=== PATIENT | female | born 1990 | race Two or more races ===

== ENCOUNTER 2017-06-25 15:13 | Inpatient (IN) | payer OTHER ==
[2017-06-25 16:42] VITALS: BMI 31.1
--- NOTE | 2017-06-25 19:59 | HP ---
CIWA Score - CIWA Score Nausea/Vomitin Muscle Tremors: 4-Moderate,w/Arms Extend Anxiety: 4-Mod. Anxious/Guarded Agitation: 4-Moderately Restless Paroxysmal Sweats: 1-Minimal Palms Moist Orientation: 0-Oriented Tacttile Disturbances: 0-None Auditory Disturbances: 0-None Visual Disturbances: 0-None Headache: 0-None Present CIWA-Ar Total Score: 15 Admission ROS BHS - HPI Chief Complaint: WITHDRAWAL SX Allergies/Adverse Reactions: Allergies Allergy/AdvReac Type Severity Reaction Status Date / Time onion Allergy Unknown Verified 06/25/17 16:55 Penicillins Allergy Unknown Verified 06/25/17 16:55 History of Present Illness: 27 YEARS OLD FEMALE WITH LONG HISTORY OF ALCOHOL XANAX KLONOPIN NICOTINE DEPENDENCE HAS BENZO WITHDRAWAL RELATED SEIZURE LAST EPISODE 12/2016 ASTHMA, AND BIPOLAR II IS ADMITTED TO DETOX Exam Limitations: No Limitations - Ebola screening Have you traveled outside of the country in the last 21 days: No Have you had contact with anyone from an Ebola affected area: No Have you been sick,other than usual withdrawal symptoms: No Do you have a fever: No - Review of Systems Constitutional: Changes in sleep, Weight Stable EENT: reports: No Symptoms Reported Respiratory: reports: No Symptoms reported Cardiac: reports: Other (HEART ATTACH AGE 14 DUE TO OVER DOSE) GI: reports: Nausea, Poor Fluid Intake, Indigestion, Abdominal cramping : reports: No Symptoms Reported Musculoskeletal: reports: Back Pain Integumentary: reports: Lesions (LEFT BREAST SKIN ABRASION SUPERFICAL) Neuro: reports: Seizure (12/2016), Tremors Endocrine: reports: No Symptoms Reported Hematology: reports: No Symptoms Reported Psychiatric: reports: Judgement Intact, Orientated x3, Anxious, Depressed Other Systems: Reviewed and Negative Patient History - Patient Medical History Hx Anemia: No Hx Asthma: Yes Hx Chronic Obstructive Pulmonary Disease (COPD): No Hx Cancer: No Hx Cardiac Disorders: Yes (CT AGE 14) Hx Congestive Heart Failure: No Hx Hypertension: No Hx Hypercholesterolemia: No Hx Pacemaker: No HX Cerebrovascular Accident: No Hx Seizures: Yes (last was 2013) Hx Dementia: No Hx Diabetes: No Hx Gastrointestinal Disorders: No Hx Liver Disease: No Hx Genitourinary Disorders: No Hx Sexually Transmitted Disorders: No Hx Renal Disease (ESRD): No Hx Thyroid Disease: No Hx Human Immunodeficiency Virus (HIV): No Hx Hepatitis C: No Hx Depression: No Hx Suicide Attempt: No Hx Bipolar Disorder: Yes Hx Schizophrenia: No - Patient Surgical History Past Surgical History: Yes Hx Neurologic Surgery: No Hx Cataract Extraction: No Hx Cardiac Surgery: No Hx Lung Surgery: No Hx Breast Surgery: No Hx Breast Biopsy: No Hx Abdominal Surgery: No Hx Appendectomy: No Hx Cholecystectomy: No Hx Genitourinary Surgery: No Hx Section: No Hx Orthopedic Surgery: No Hx Hysterectomy: No Other Surgical History: I and D L ear Anesthesia Reaction: No - PPD History Previous Implant?: Yes Documented Results: Negative w/o proof Implanted On Prior R Admission?: No PPD to be Administered?: Yes - Reproductive History Patient is a Female of Child Bearing Age (11 -55 yrs old): Yes Last Menstrual Period: 06/13/17 Patient : No - Smoking Cessation Smoking history: Current every day smoker Have you smoked in the past 12 months: Yes Aproximately how many cigarettes per day: 20 Cigars Per Day: 0 Hx Chewing Tobacco Use: No Initiated information on smoking cessation: Yes 'Breaking Loose' booklet given: 06/25/17 - Substance & Tx. History Hx Alcohol Use: Yes Hx Substance Use: Yes Substance Use Type: Alcohol, Tranquilizers Hx Substance Use Treatment: Yes (12/2016 [facility]) - Substances Abused Alcohol Route: Oral Frequency: Daily Amount used: 1 pint of banana liquer Age of first use: 10 Date of Last Use: 06/25/17 Crack Route: Smoking Frequency: Daily Amount used: $50 Age of first use: 21 Date of Last Use: 06/22/17 xanax or klonopin Route: Oral Frequency: Daily Amount used: 6-10 mg Age of first use: 17 Date of Last Use: 06/25/17 Family Disease History - Family Disease History Family Disease History: Other: Father (NO CONTACT), Mother (/HIV) Admission Physical Exam BHS - Vital Signs Vital Signs: Vital Signs - 24 hr 06/25/17 16:39 Temperature 98.8 F Pulse Rate 70 Respiratory 18 Rate Blood Pressure 96/70 - Physical General Appearance: Yes: Appropriately Dressed, Mild Distress, Tremorous, Irritable, Sweating, Anxious HEENTM: Yes: Hearing grossly Normal, Normal ENT Inspection, Normocephalic, Normal Voice Respiratory: Yes: Chest Non-Tender, Lungs Clear, Normal Breath Sounds, No Respiratory Distress, No Accessory Muscle Use Neck: Yes: Supple, Trachea in good position Breast: Yes: Breasts Symetrical Cardiology: Yes: Regular Rhythm, Regular Rate, S1, S2 Abdominal: Yes: Normal Bowel Sounds, Non Tender, Soft Genitourinary: Yes: Within Normal Limits Back: Yes: Normal Inspection Musculoskeletal: Yes: full range of Motion, Gait Steady, Back pain Extremities: Yes: Normal Inspection, Normal Range of Motion, Non-Tender, Tremors Neurological: Yes: Fully Oriented, Alert, Motor Strength 5/5, Normal Response, Depressed Affect Integumentary: Yes: Warm Lymphatic: Yes: Within Normal Limits - Diagnostic (1) Alcohol dependence with uncomplicated withdrawal Current Visit: Yes Status: Acute (2) Sedative, hypnotic or anxiolytic dependence with withdrawal, uncomplicated Current Visit: Yes Status: Acute (3) Chronic back pain Current Visit: Yes Status: Chronic Qualifiers: Back pain location: low back pain Back pain laterality: bilateral Sciatica presence: without sciatica Qualified Code(s): M54.5 - Low back pain; G89.29 - Other chronic pain (4) Nicotine dependence Current Visit: Yes Status: Acute Qualifiers: Nicotine product type: cigarettes Substance use status: in withdrawal Qualified Code(s): F17.213 - Nicotine dependence, cigarettes, with withdrawal (5) Asthma Current Visit: Yes Status: Chronic Qualifiers: Asthma severity: mild intermittent Asthma complication type: with status asthmaticus Qualified Code(s): J45.22 - Mild intermittent asthma with status asthmaticus (6) Skin abrasion Current Visit: Yes Status: Acute (7) GERD (gastroesophageal reflux disease) Current Visit: Yes Status: Chronic Qualifiers: Esophagitis presence: without esophagitis Qualified Code(s): K21.9 - Gastro-esophageal reflux disease without esophagitis (8) Bipolar II disorder Current Visit: Yes Status: Suspected Cleared for Admission S - Detox or Rehab [facility] Level of Care: Medically Managed Detox Regimen/Protocol: Valium S Breath Alcohol Content Breath Alcohol Content: 0 Urine Pregancy Test - Result Urine Test Results: Negative- NO Line Present Urine Drug Screen - Results Drug Screen Negative: No Urine Drug Screen Results: ART-Cocaine, BZO-Benzodiazepines, MTD-Methadone
[2017-06-25] MEDS ORDERED: diazePAM 5 MG TABLET PO ONE (20:06)
[2017-06-25] MEDS ORDERED: MAGNESIUM CITRATE 300 ML BOTTLE PO PRN (20:06)
[2017-06-25] MEDS ORDERED: LOPERAMIDE HCL 2 MG CAPSULE PO PRN (20:06)
[2017-06-25] MEDS ORDERED: MAG HYDROX/AL HYDROX/SIMETH 30 ML UNIT-DOSE CUP PO PRN (20:06)
[2017-06-25] MEDS ORDERED: guaiFENesin/D-METHORPHAN HB 10 ML UNIT-DOSE CUPS PO PRN (20:06)
[2017-06-25] MEDS ORDERED: MAGNESIUM HYDROX 2400MG/30ML ORAL SUSPENSION 30 ML CUP PO PRN (20:06)
[2017-06-25] MEDS ORDERED: MENTHOL/PHENOL 1 EACH UD MM PRN (20:06)
[2017-06-25] MEDS ORDERED: P-EPHED 60MG/TRIPROLIDI 2.5MG TABLET PO PRN (20:06)
[2017-06-25] MEDS ORDERED: ALBUTEROL SO4 6.7 GM HFA INHALER IH PRN (20:08)
[2017-06-25] MEDS ORDERED: BACITRACIN 0.9 GM PACKET TP ONE (20:09)
[2017-06-25] MEDS ORDERED: ALBUTEROL SO4 2.5/IPRATROPIUM 0.5 INH SOL 3 ML VIAL.NEB. NEB PRN (20:09)
[2017-06-25] MEDS: RANITIDINE HCL 150 MG TABLET (FP) PO SCH (22:47)
[2017-06-25] MEDS: CYCLOBENZAPRINE HCL 10 MG TABLET (FP) PO SCH (22:47)
[2017-06-25] MEDS: diphenhydrAMINE HCL 50 MG CAPSULE PO PRN (22:47)
[2017-06-25] MEDS: THIAMINE HCL 100 MG TABLET (FP) PO SCH (22:47)
[2017-06-25] MEDS: LIDOCAINE PATCH REMOVAL MC SCH (22:51)
[2017-06-25] MEDS: diazePAM 5 MG TABLET PO SCH (22:52)
[2017-06-26 01:29] LABS: URINE APPEARANCE CLOUDY; URINE BILIRUBIN NEGATIVE (NEGATIVE); URINE BLOOD NEGATIVE (NEGATIVE); URINE COLOR YELLOW; URINE GLUCOSE (UA) NEGATIVE (NEGATIVE); URINE KETONE NEGATIVE (NEGATIVE); URINE NITRITE NEGATIVE (NEGATIVE); URINE PROTEIN NEGATIVE (NEGATIVE); URINE UROBILINOGEN NEGATIVE mg/dL (0.2-1.0)
[2017-06-26 01:30] LABS: URINE LEUK ESTERASE 3+ (NEGATIVE)
[2017-06-26 01:35] LABS: URINE HYALINE CAST 1 /lpf; URINE MUCUS RARE; URINE RBC 4 /hpf (0-3); URINE WBC 146 /hpf (3-5)
[2017-06-26] MEDS: CYCLOBENZAPRINE HCL 10 MG TABLET (FP) PO SCH ×3 (06:05→22:06)
[2017-06-26] MEDS: diazePAM 5 MG TABLET PO SCH ×3 (06:07→22:07)
[2017-06-26] MEDS ORDERED: METHADONE HCL 10 MG TABLET PO ONE (08:30)
--- NOTE | 2017-06-26 08:33 | CONSULT ---
[facility] Psychiatric Consult - Data Date of interview: 06/26/17 Admission source: [facility] Identifying data: This is 27 years old female with psychiatric hospitalization history intoxicated with: Alcohol, Benzodiazepins and Nicotine Substance Abuse History: - Smoking Cessation. Smoking history: Current every day smoker. Have you smoked in the past 12 months: Yes. Aproximately how many cigarettes per day: 20. Cigars Per Day: 0. Hx Chewing Tobacco Use: No. Initiated information on smoking cessation: Yes. 'Breaking Loose' booklet given : 06/25/17. - Substance & Tx. History. Hx Alcohol Use: Yes. Hx Substance Use : Yes. Substance Use Type: Alcohol, Tranquilizers. Hx Substance Use Treatment : Yes (12/2016 [facility]). - Substances Abused. Alcohol. Route: Oral. Frequency: Daily. Amount used: 1 pint of banana liquer. Age of first use: 10. Date of Last Use: 06/25/17. Crack. Route: Smoking. Frequency: Daily. Amount used: $50. Age of first use: 21. Date of Last Use: 06/22/17. xanax or klonopin. Route: Oral. Frequency: Daily. Amount used: 6-10 mg. Age of first use: 17. Date of Last Use: 06/25/17 Medical History: Asthma, LBP, GERD Psychiatric History: Patient reprots history of anxiety and depression, Bipolar II Disorder, most recent psychiatric admission fore safety at [facility] on 2016, reports no medications taking priorm to admission Physical/Sexual Abuse/Trauma History: Denies, unclear Additional Comment: Observation. Detox Unit Care Protocol Mental Status Exam - Mental Status Exam Alert and Oriented to: Person Cognitive Function: Fair Patient Appearance: Unkempt Mood: Sad Affect: Flat Patient Behavior: Sedated Speech Pattern: Delayed Voice Loudness: Mildly Soft/Quiet Thought Process: Circumstantial Thought Disorder: Being Controlled Hallucinations: Denies Suicidal Ideation: Denies Homicidal Ideation: Denies Insight/Judgement: Fair Sleep: Difficulty falling asleep Appetite: Fair Muscle strength/Tone: Mild Hypotonicity Gait/Station: Shuffling Additional Comments: Observation. Detox Unit Care Protocol Psychiatric Findings - Problem List ([place] 1, 2,3) (1) Alcohol dependence with uncomplicated withdrawal Current Visit: Yes Status: Chronic (2) Nicotine dependence Current Visit: Yes Status: Chronic Qualifiers: Nicotine product type: cigarettes Substance use status: uncomplicated Qualified Code(s): F17.210 - Nicotine dependence, cigarettes, uncomplicated (3) Sedative, hypnotic or anxiolytic dependence with withdrawal, uncomplicated Current Visit: Yes Status: Chronic (4) Bipolar II disorder Current Visit: Yes Status: Suspected (5) Drug-induced mood disorder Current Visit: Yes Status: Acute - Initial Treatment Plan Initial Treatment Plan: Observation. Detox Unit Care Protocol
[2017-06-26] MEDS ORDERED: METHADONE 200 MG, METHADONE 20 MG PO ONE (08:40)
[2017-06-26] MEDS ORDERED: METHADONE HCL 40 MG DISPERSABLE TABLET ONE (09:39)
[2017-06-26] MEDS ORDERED: METHADONE HCL 10 MG TABLET ONE (09:40)
[2017-06-26 10:01] LABS: MCH 28.8 pg (25.7-33.7); MCHC 32.8 g/dl (32.0-36.0); MEAN CELL VOLUME 87.7 fl (80-96); MEAN PLT VOLUME 10.4 fl (7.5-11.1); PLATELET COUNT 216 K/MM3 (134-434); RDW 14.4 % (11.6-15.6); WHITE BLOOD COUNT 8.4 K/mm3 (4.0-10.0)
[2017-06-26 10:22] LABS: ALBUMIN 2.7 g/dl (3.4-5.0); ALK PHOS 60 U/L (45-117); ANION GAP 6 (8-16); BILIRUBIN,TOTAL 0.2 mg/dL (0.2-1.0); CALCIUM 8.5 mg/dL (8.5-10.1); CO2 28 mmol/L (21-32); CREATININE 0.7 mg/dL (0.55-1.02); GLUCOSE,RANDOM 81 mg/dL (74-106); SGOT/AST 15 U/L (15-37); SGPT/ALT 18 U/L (12-78); TOT PROT 6.1 g/dl (6.4-8.2)
[2017-06-26] MEDS: PRENATAL VITAMINS W/ FOLIC ACID TABLET (FP) PO SCH (10:27)
[2017-06-26] MEDS: NICOTINE 21 MG/24 HOURS TOPICAL PATCH TD SCH (10:30)
[2017-06-26] MEDS: LIDOCAINE 5% TOPICAL PATCH TP SCH (10:30)
[2017-06-26] MEDS: RANITIDINE HCL 150 MG TABLET (FP) PO SCH ×2 (10:31→22:07)
[2017-06-26] MEDS: NICOTINE POLACRILEX 4 MG GUM BC PRN ×3 (10:31→15:45)
--- NOTE | 2017-06-26 11:19 | PN ---
S CIWA - CIWA Score Nausea/Vomitin-No Nausea/No Vomiting Muscle Tremors: 4-Moderate,w/Arms Extend Anxiety: 4-Mod. Anxious/Guarded Agitation: 4-Moderately Restless Paroxysmal Sweats: 3 Orientation: 0-Oriented Tacttile Disturbances: 0-None Auditory Disturbances: 0-None Visual Disturbances: 0-None Headache: 0-None Present CIWA-Ar Total Score: 15 BHS Progress Note (SOAP) Subjective: agitation anxiety sweats shakes body aches Objective: 06/26/17 11:18 Vital Signs Temperature 95.9 F L 06/26/17 10:03 Pulse Rate 63 06/26/17 10:03 Respiratory Rate 16 06/26/17 10:03 Blood Pressure 101/64 06/26/17 10:03 O2 Sat by Pulse Oximetry (%) Laboratory Tests 06/25/17 06/26/17 06/26/17 23:51 07:50 07:50 WBC 8.4 RBC 4.06 Hgb 11.7 Hct 35.6 MCV 87.7 MCH 28.8 MCHC 32.8 RDW 14.4 Plt Count 216 MPV 10.4 Sodium 141 Potassium 4.6 Chloride 107 Carbon Dioxide 28 Anion Gap 6 L BUN 12 Creatinine 0.7 Creat Clearance w eGFR > 60 Random Glucose 81 Calcium 8.5 Total Bilirubin 0.2 AST 15 ALT 18 Alkaline Phosphatase 60 Total Protein 6.1 L Albumin 2.7 L Urine Color Yellow Urine Appearance Cloudy Urine pH 6.0 Ur Specific [place] 1.015 Urine Protein Negative Urine Glucose (UA) Negative Urine Ketones Negative Urine Blood Negative Urine Nitrite Negative Urine Bilirubin Negative Urine Urobilinogen Negative Urine RBC 4 Urine WBC 146 Ur Epithelial Cells Moderate Hyaline Casts 1 Urine Mucus Rare awake/alert ambulating no acute distress Assessment: 06/26/17 11:19 withdrawal sx Plan: continue detox increase fluids
[2017-06-26] MEDS: diazePAM 5 MG TABLET PO PRN (12:29)
[2017-06-26 12:59] LABS: HIV 1 & 2 AB NEGATIVE; HIV 1 AGp24 NEGATIVE
--- NOTE | 2017-06-26 13:25 | EKG ---
Test Reason : Blood Pressure : / mmHG Vent. Rate : 063 BPM Atrial Rate : 063 BPM P-R Int : 154 ms QRS Dur : 084 ms QT Int : 454 ms P-R-T Axes : 045 043 020 degrees QTc Int : 464 ms NORMAL SINUS RHYTHM NONSPECIFIC T WAVE ABNORMALITY PROLONGED QT ABNORMAL ECG NO PREVIOUS ECGS AVAILABLE Confirmed by JAKE ALLISON, CANDICE ([id number]) on 06/26/2017 1:24:57 PM Referred By: Stevan Rhodes Confirmed By:CANDICE JOSEPH MD
[2017-06-26] MEDS: diphenhydrAMINE HCL 50 MG CAPSULE PO PRN (22:06)
[2017-06-26] MEDS: THIAMINE HCL 100 MG TABLET (FP) PO SCH (22:07)
[2017-06-26] MEDS: LIDOCAINE PATCH REMOVAL MC SCH (22:07)
[2017-06-27] MEDS: diazePAM 5 MG TABLET PO PRN ×3 (02:41→17:14)
[2017-06-27] MEDS ORDERED: METHADONE HCL 40 MG DISPERSABLE TABLET ONE (04:45)
[2017-06-27] MEDS ORDERED: METHADONE HCL 10 MG TABLET ONE (04:45)
[2017-06-27] MEDS: CYCLOBENZAPRINE HCL 10 MG TABLET (FP) PO SCH ×3 (05:44→22:24)
[2017-06-27] MEDS: ACETAMINOPHEN 325 MG TABLET (FP) PO PRN (05:46)
[2017-06-27] MEDS ORDERED: METHADONE HCL 40 MG DISPERSABLE TABLET PO SCH (06:00)
[2017-06-27] MEDS: METHADONE 200 MG, METHADONE 20 MG PO SCH (07:09)
[2017-06-27] MEDS ORDERED: IBUPROFEN 400 MG TABLET (FP) PO PRN (07:11)
[2017-06-27] MEDS: PRENATAL VITAMINS W/ FOLIC ACID TABLET (FP) PO SCH (10:26)
[2017-06-27] MEDS: diazePAM 5 MG TABLET PO SCH ×2 (10:26→22:24)
[2017-06-27] MEDS: RANITIDINE HCL 150 MG TABLET (FP) PO SCH ×2 (10:26→22:24)
[2017-06-27] MEDS: NICOTINE 21 MG/24 HOURS TOPICAL PATCH TD SCH (10:30)
[2017-06-27] MEDS: LIDOCAINE 5% TOPICAL PATCH TP SCH (11:05)
[2017-06-27] MEDS ORDERED: PHENAZOPYRIDINE HCL 100 MG TABLET (FP) PO ONE (11:33)
--- NOTE | 2017-06-27 11:45 | PN ---
[facility] CIWA - CIWA Score Nausea/Vomitin-No Nausea/No Vomiting Muscle Tremors: 3 Anxiety: 3 Agitation: 3 Paroxysmal Sweats: 3 Orientation: 0-Oriented Tacttile Disturbances: 0-None Auditory Disturbances: 0-None Visual Disturbances: 0-None Headache: 0-None Present CIWA-Ar Total Score: 12 S Progress Note (SOAP) Subjective: UTI sweats interrupted sleep agitation toothache Objective: 06/27/17 11:45 Vital Signs Temperature 98.1 F 06/27/17 09:41 Pulse Rate 72 06/27/17 09:41 Respiratory Rate 18 06/27/17 09:41 Blood Pressure 105/64 06/27/17 09:41 O2 Sat by Pulse Oximetry (%) Laboratory Tests 06/25/17 06/26/17 06/26/17 23:51 07:50 07:50 WBC RBC Hgb Hct MCV MCH MCHC RDW Plt Count MPV Sodium Potassium Chloride Carbon Dioxide Anion Gap BUN Creatinine Creat Clearance w eGFR Random Glucose Calcium Total Bilirubin AST ALT Alkaline Phosphatase Total Protein Albumin Urine Color Yellow Urine Appearance Cloudy Urine pH 6.0 Ur Specific [place] 1.015 Urine Protein Negative Urine Glucose (UA) Negative Urine Ketones Negative Urine Blood Negative Urine Nitrite Negative Urine Bilirubin Negative Urine Urobilinogen Negative Urine RBC 4 Urine WBC 146 Ur Epithelial Cells Moderate Hyaline Casts 1 Urine Mucus Rare RPR Titer Hepatitis C Antibody <0.1 HIV 1&2 Antibody Screen Negative HIV P24 Antigen Negative 06/26/17 06/26/17 06/26/17 07:50 07:50 07:50 WBC 8.4 RBC 4.06 Hgb 11.7 Hct 35.6 MCV 87.7 MCH 28.8 MCHC 32.8 RDW 14.4 Plt Count 216 MPV 10.4 Sodium 141 Potassium 4.6 Chloride 107 Carbon Dioxide 28 Anion Gap 6 L BUN 12 Creatinine 0.7 Creat Clearance w eGFR > 60 Random Glucose 81 Calcium 8.5 Total Bilirubin 0.2 AST 15 ALT 18 Alkaline Phosphatase 60 Total Protein 6.1 L Albumin 2.7 L Urine Color Urine Appearance Urine pH Ur Specific [place] Urine Protein Urine Glucose (UA) Urine Ketones Urine Blood Urine Nitrite Urine Bilirubin Urine Urobilinogen Urine RBC Urine WBC Ur Epithelial Cells Hyaline Casts Urine Mucus RPR Titer Nonreactive Hepatitis C Antibody HIV 1&2 Antibody Screen HIV P24 Antigen Urine WBC is 146; pt c/o UTI AAOx3 ambulating no acute distress Assessment: 06/27/17 11:46 withdrawal sx Plan: continue detox increase fluids nitrofurantoin 50mg q6hr x 7 pyriium 200mg x one
[2017-06-27] MEDS: NITROFURANTOIN MACROCRYSTAL 50 MG CAPSULE (FP) PO SCH ×3 (12:23→23:42)
[2017-06-27] MEDS: diphenhydrAMINE HCL 50 MG CAPSULE PO PRN (22:23)
[2017-06-27] MEDS: THIAMINE HCL 100 MG TABLET (FP) PO SCH (22:23)
[2017-06-27] MEDS: IBUPROFEN 400 MG TABLET (FP) PO PRN (22:24)
[2017-06-27] MEDS: NICOTINE POLACRILEX 4 MG GUM BC PRN (22:26)
[2017-06-27] MEDS: LIDOCAINE PATCH REMOVAL MC SCH (23:14)
[2017-06-28] MEDS ORDERED: METHADONE HCL 40 MG DISPERSABLE TABLET ONE (04:55)
[2017-06-28] MEDS ORDERED: METHADONE HCL 10 MG TABLET ONE (04:55)
[2017-06-28] MEDS: NITROFURANTOIN MACROCRYSTAL 50 MG CAPSULE (FP) PO SCH ×3 (05:15→17:34)
[2017-06-28] MEDS: CYCLOBENZAPRINE HCL 10 MG TABLET (FP) PO SCH ×3 (05:15→22:20)
[2017-06-28] MEDS: diazePAM 5 MG TABLET PO PRN ×2 (05:17→14:07)
[2017-06-28] MEDS: IBUPROFEN 400 MG TABLET (FP) PO PRN ×3 (05:50→22:21)
[2017-06-28] MEDS: METHADONE 200 MG, METHADONE 20 MG PO SCH (07:14)
[2017-06-28] MEDS: NICOTINE POLACRILEX 4 MG GUM BC PRN (11:22)
[2017-06-28] MEDS: NICOTINE 21 MG/24 HOURS TOPICAL PATCH TD SCH (11:22)
[2017-06-28] MEDS: diazePAM 5 MG TABLET PO SCH ×2 (11:22→22:20)
[2017-06-28] MEDS: RANITIDINE HCL 150 MG TABLET (FP) PO SCH ×2 (11:22→22:20)
[2017-06-28] MEDS: PRENATAL VITAMINS W/ FOLIC ACID TABLET (FP) PO SCH (11:22)
[2017-06-28] MEDS: LIDOCAINE 5% TOPICAL PATCH TP SCH (11:23)
--- NOTE | 2017-06-28 13:12 | PN ---
BHS Progress Note (SOAP) Subjective: interrupted sleep, sweats, shakes, body aches Objective: 06/28/17 13:12 Vital Signs - 8 hr 06/28/17 06/28/17 06:50 11:03 Temperature 98.1 F 98.2 F Pulse Rate 63 68 Respiratory 16 18 Rate Blood Pressure 101/54 94/53 Laboratory Last Values WBC 8.4 K/mm3 (4.0-10.0) 06/26/17 07:50 RBC 4.06 M/mm3 (3.60-5.2) 06/26/17 07:50 Hgb 11.7 GM/dL (10.7-15.3) 06/26/17 07:50 Hct 35.6 % (32.4-45.2) 06/26/17 07:50 MCV 87.7 fl (80-96) 06/26/17 07:50 MCH 28.8 pg (25.7-33.7) 06/26/17 07:50 MCHC 32.8 g/dl (32.0-36.0) 06/26/17 07:50 RDW 14.4 % (11.6-15.6) 06/26/17 07:50 Plt Count 216 K/MM3 (134-434) 06/26/17 07:50 MPV 10.4 fl (7.5-11.1) 06/26/17 07:50 Sodium 141 mmol/L (136-145) 06/26/17 07:50 Potassium 4.6 mmol/L (3.5-5.1) 06/26/17 07:50 Chloride 107 mmol/L (98-107) 06/26/17 07:50 Carbon Dioxide 28 mmol/L (21-32) 06/26/17 07:50 Anion Gap 6 (8-16) L 06/26/17 07:50 BUN 12 mg/dL (7-18) 06/26/17 07:50 Creatinine 0.7 mg/dL (0.55-1.02) 06/26/17 07:50 Creat Clearance w eGFR > 60 (>60) 06/26/17 07:50 Random Glucose 81 mg/dL (74-106) 06/26/17 07:50 Calcium 8.5 mg/dL (8.5-10.1) 06/26/17 07:50 Total Bilirubin 0.2 mg/dL (0.2-1.0) 06/26/17 07:50 AST 15 U/L (15-37) 06/26/17 07:50 ALT 18 U/L (12-78) 06/26/17 07:50 Alkaline Phosphatase 60 U/L (45-117) 06/26/17 07:50 Total Protein 6.1 g/dl (6.4-8.2) L 06/26/17 07:50 Albumin 2.7 g/dl (3.4-5.0) L 06/26/17 07:50 Urine Color Yellow 06/25/17 23:51 Urine Appearance Cloudy 06/25/17 23:51 Urine pH 6.0 (5.0-8.0) 06/25/17 23:51 Ur Specific [place] 1.015 (1.005-1.025) 06/25/17 23:51 Urine Protein Negative (NEGATIVE) 06/25/17 23:51 Urine Glucose (UA) Negative (NEGATIVE) 06/25/17 23:51 Urine Ketones Negative (NEGATIVE) 06/25/17 23:51 Urine Blood Negative (NEGATIVE) 06/25/17 23:51 Urine Nitrite Negative (NEGATIVE) 06/25/17 23:51 Urine Bilirubin Negative (NEGATIVE) 06/25/17 23:51 Urine Urobilinogen Negative mg/dL (0.2-1.0) 06/25/17 23:51 Urine RBC 4 /hpf (0-3) 06/25/17 23:51 Urine WBC 146 /hpf (3-5) 06/25/17 23:51 Ur Epithelial Cells Moderate /hpf (FEW) 06/25/17 23:51 Hyaline Casts 1 /lpf 06/25/17 23:51 Urine Mucus Rare 06/25/17 23:51 RPR Titer Nonreactive (NONREACTIVE) 06/26/17 07:50 Hepatitis C Antibody <0.1 s/co ratio (0.0-0.9) 06/26/17 07:50 HIV 1&2 Antibody Screen Negative 06/26/17 07:50 HIV P24 Antigen Negative 06/26/17 07:50 labs noted Assessment: 06/28/17 13:12 withdrawal sx Plan: continue detox
[2017-06-28] MEDS: THIAMINE HCL 100 MG TABLET (FP) PO SCH (22:20)
[2017-06-28] MEDS: diphenhydrAMINE HCL 50 MG CAPSULE PO PRN (22:20)
[2017-06-28] MEDS: LIDOCAINE PATCH REMOVAL MC SCH (23:45)
[2017-06-29] MEDS ORDERED: METHADONE HCL 40 MG DISPERSABLE TABLET ONE (05:12)
[2017-06-29] MEDS ORDERED: METHADONE HCL 10 MG TABLET ONE (05:13)
[2017-06-29] MEDS: METHADONE 200 MG, METHADONE 20 MG PO SCH (06:42)
[2017-06-29] MEDS: NITROFURANTOIN MACROCRYSTAL 50 MG CAPSULE (FP) PO SCH ×4 (06:42→23:45)
[2017-06-29] MEDS: CYCLOBENZAPRINE HCL 10 MG TABLET (FP) PO SCH ×3 (06:42→22:16)
[2017-06-29] MEDS ORDERED: diazePAM 5 MG TABLET PO SCH (10:00)
[2017-06-29] MEDS: PRENATAL VITAMINS W/ FOLIC ACID TABLET (FP) PO SCH (10:33)
[2017-06-29] MEDS: RANITIDINE HCL 150 MG TABLET (FP) PO SCH ×2 (10:33→23:01)
[2017-06-29] MEDS: IBUPROFEN 400 MG TABLET (FP) PO PRN ×2 (10:35→22:16)
[2017-06-29] MEDS: NICOTINE 21 MG/24 HOURS TOPICAL PATCH TD SCH (10:36)
[2017-06-29] MEDS: LIDOCAINE 5% TOPICAL PATCH TP SCH (10:36)
--- NOTE | 2017-06-29 12:32 | PN ---
BHS Progress Note (SOAP) Subjective: Sweating,interrupted sleep,restless. Objective: 06/29/17 12:28 Vital Signs - 8 hr 06/29/17 06/29/17 06:35 10:28 Temperature 98.2 F 97.7 F Pulse Rate 68 80 Respiratory 18 18 Rate Blood Pressure 93/60 98/67 Laboratory Tests 06/25/17 06/26/17 06/26/17 23:51 07:50 07:50 WBC RBC Hgb Hct MCV MCH MCHC RDW Plt Count MPV Sodium Potassium Chloride Carbon Dioxide Anion Gap BUN Creatinine Creat Clearance w eGFR Random Glucose Calcium Total Bilirubin AST ALT Alkaline Phosphatase Total Protein Albumin Urine Color Yellow Urine Appearance Cloudy Urine pH 6.0 Ur Specific [place] 1.015 Urine Protein Negative Urine Glucose (UA) Negative Urine Ketones Negative Urine Blood Negative Urine Nitrite Negative Urine Bilirubin Negative Urine Urobilinogen Negative Urine RBC 4 Urine WBC 146 Ur Epithelial Cells Moderate Hyaline Casts 1 Urine Mucus Rare RPR Titer Hepatitis C Antibody <0.1 HIV 1&2 Antibody Screen Negative HIV P24 Antigen Negative 06/26/17 06/26/17 06/26/17 07:50 07:50 07:50 WBC 8.4 RBC 4.06 Hgb 11.7 Hct 35.6 MCV 87.7 MCH 28.8 MCHC 32.8 RDW 14.4 Plt Count 216 MPV 10.4 Sodium 141 Potassium 4.6 Chloride 107 Carbon Dioxide 28 Anion Gap 6 L BUN 12 Creatinine 0.7 Creat Clearance w eGFR > 60 Random Glucose 81 Calcium 8.5 Total Bilirubin 0.2 AST 15 ALT 18 Alkaline Phosphatase 60 Total Protein 6.1 L Albumin 2.7 L Urine Color Urine Appearance Urine pH Ur Specific [place] Urine Protein Urine Glucose (UA) Urine Ketones Urine Blood Urine Nitrite Urine Bilirubin Urine Urobilinogen Urine RBC Urine WBC Ur Epithelial Cells Hyaline Casts Urine Mucus RPR Titer Nonreactive Hepatitis C Antibody HIV 1&2 Antibody Screen HIV P24 Antigen labs noted Assessment: 06/29/17 12:31 Withdrawal sx. Plan: Continue detox
[2017-06-29] MEDS: hydrOXYzine PAMOATE 50 MG CAPSULE (FP) PO PRN ×2 (17:14→22:16)
[2017-06-29] MEDS: THIAMINE HCL 100 MG TABLET (FP) PO SCH (22:16)
[2017-06-29] MEDS: LIDOCAINE PATCH REMOVAL MC SCH (23:00)
[2017-06-30] MEDS ORDERED: METHADONE HCL 40 MG DISPERSABLE TABLET ONE (04:23)
[2017-06-30] MEDS ORDERED: METHADONE HCL 10 MG TABLET ONE (04:24)
[2017-06-30] MEDS: METHADONE 200 MG, METHADONE 20 MG PO SCH (06:04)
[2017-06-30] MEDS: CYCLOBENZAPRINE HCL 10 MG TABLET (FP) PO SCH (06:04)
[2017-06-30] MEDS: NITROFURANTOIN MACROCRYSTAL 50 MG CAPSULE (FP) PO SCH (06:05)
[2017-06-30] MEDS: IBUPROFEN 400 MG TABLET (FP) PO PRN (06:13)
[2017-06-30] MEDS: NICOTINE POLACRILEX 4 MG GUM BC PRN (06:16)
--- NOTE | 2017-06-30 08:48 | DS ---
[facility] Detox Discharge Summary Admission Date: 06/25/17 Discharge Date: 06/30/17 - History Present History: Alcohol Dependence, Sedative Dependence - Physical Exam Results Vital Signs: Vital Signs Temperature 98.2 F 06/30/17 06:17 Pulse Rate 81 06/30/17 06:17 Respiratory Rate 18 06/30/17 06:17 Blood Pressure 100/66 06/30/17 06:17 O2 Sat by Pulse Oximetry (%) - Treatment Hospital Course: Detox Protocol Followed, Detoxed Safely, Responded well, Discharged Condition Good, Rehab Referral Accepted - Medication Discharge Medications: Ambulatory Orders NK [No Known Home Medication] 06/25/17 - Diagnosis (1) Alcohol dependence with uncomplicated withdrawal Current Visit: Yes Status: Chronic (2) Nicotine dependence Current Visit: Yes Status: Chronic Qualifiers: Nicotine product type: cigarettes Substance use status: uncomplicated Qualified Code(s): F17.210 - Nicotine dependence, cigarettes, uncomplicated (3) Sedative, hypnotic or anxiolytic dependence with withdrawal, uncomplicated Current Visit: Yes Status: Chronic (4) Asthma Current Visit: Yes Status: Chronic Qualifiers: Asthma severity: mild intermittent Asthma complication type: with status asthmaticus Qualified Code(s): J45.22 - Mild intermittent asthma with status asthmaticus (5) GERD (gastroesophageal reflux disease) Current Visit: Yes Status: Chronic Qualifiers: Esophagitis presence: without esophagitis Qualified Code(s): K21.9 - Gastro-esophageal reflux disease without esophagitis (6) UTI (urinary tract infection) Current Visit: Yes Status: Acute Qualifiers: Encounter type: initial encounter - AMA Did Patient Leave Against Medical Advice: No
[2017-06-30 10:23] VITALS: BP 102/64; PULSE 84; TEMP 97
[2017-06-30] MEDS: PRENATAL VITAMINS W/ FOLIC ACID TABLET (FP) PO SCH (10:35)
[2017-06-30] MEDS: RANITIDINE HCL 150 MG TABLET (FP) PO SCH (10:35)
[2017-06-30] MEDS: ACETAMINOPHEN 325 MG TABLET (FP) PO PRN (10:36)
[2017-06-30] MEDS: hydrOXYzine PAMOATE 50 MG CAPSULE (FP) PO PRN (10:38)
[2017-06-30] MEDS: NICOTINE 21 MG/24 HOURS TOPICAL PATCH TD SCH (10:38)
[2017-06-30] MEDS: LIDOCAINE 5% TOPICAL PATCH TP SCH (10:39)
== END 2017-06-30 12:20 | disposition other institution (70) | DRG 775 ==
LOC: YASAS 15:13 → Y6N 18:48
PROVIDERS: ADMIT Internal Medicine Addiction Medicine; ATTEND Internal Medicine Addiction Medicine
PROC: HZ2ZZZZ Detoxification Services for Substance Abuse Treatment (ICD-10-PCS; principal; 2017-06-25)
DX: F13.230 Sedative, hypnotic or anxiolytic dependence with withdrawal, uncomplicated (principal); F10.230 Alcohol dependence with withdrawal, uncomplicated; F17.210 Nicotine dependence, cigarettes, uncomplicated; F19.24 Other psychoactive substance dependence with psychoactive substance-induced mood disorder; F31.81 Bipolar II disorder; J45.22 Mild intermittent asthma with status asthmaticus; K21.9 Gastro-esophageal reflux disease without esophagitis; N39.0 Urinary tract infection, site not specified; I25.2 Old myocardial infarction; Z86.69 Personal history of other diseases of the nervous system and sense organs
CPT/HCPCS: 36415; 80053; 81003; 81015; 85027; 86593; 86803; 87389; 93005; 93010

== ENCOUNTER 2017-06-30 12:31 | Inpatient (IN) | payer OTHER ==
[2017-06-30] MEDS ORDERED: P-EPHED 60MG/TRIPROLIDI 2.5MG TABLET PO PRN (13:09)
[2017-06-30] MEDS ORDERED: MAGNESIUM HYDROX 2400MG/30ML ORAL SUSPENSION 30 ML CUP PO PRN (13:09)
[2017-06-30] MEDS ORDERED: MENTHOL/PHENOL 1 EACH UD MM PRN (13:09)
[2017-06-30] MEDS ORDERED: diphenhydrAMINE HCL 50 MG CAPSULE PO PRN (13:09)
[2017-06-30] MEDS ORDERED: MAGNESIUM CITRATE 300 ML BOTTLE PO PRN (13:09)
[2017-06-30] MEDS ORDERED: guaiFENesin/D-METHORPHAN HB 10 ML UNIT-DOSE CUPS PO PRN (13:09)
--- NOTE | 2017-06-30 13:11 | HP ---
[facility] Rehab Assess/Revision - Admission History Admitted to Rehab from: [facility] [place] Date of Admission to Rehab: 06/30/17 - Vital signs Vital Signs: Vital Signs Period Temp Pulse Resp BP Sys/Wright Pulse Ox Last 24 Hr 98.1 F 83 18 90/61 - Findings Detox History & Physical reviewed: Yes Concur with findings: Yes Inpatient Rehab Admission - Initial Determination Are CD services needed?: Yes Free of communicable disease: Yes Not in need of hospitalization: Yes - Rehab Admission Criteria Previous failed treatment: Yes Poor recovery environment: Yes Comorbidities: Yes Lacks judgement: Yes Patient is meeting Inpatient Rehab admission criteria:: Yes
[2017-06-30] MEDS: NITROFURANTOIN MACROCRYSTAL 50 MG CAPSULE (FP) PO SCH ×3 (13:46→23:57)
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
[2017-06-30] MEDS: THIAMINE HCL 100 MG TABLET (FP) PO SCH (21:56)
[2017-06-30] MEDS: RANITIDINE HCL 150 MG TABLET (FP) PO SCH (21:56)
[2017-07-01] MEDS ORDERED: METHADONE HCL 10 MG TABLET ONE (06:06)
[2017-07-01] MEDS ORDERED: METHADONE HCL 40 MG DISPERSABLE TABLET ONE (06:07)
[2017-07-01] MEDS: NITROFURANTOIN MACROCRYSTAL 50 MG CAPSULE (FP) PO SCH ×4 (06:28→23:28)
[2017-07-01] MEDS: IBUPROFEN 400 MG TABLET (FP) PO PRN (06:31)
[2017-07-01] MEDS: NICOTINE POLACRILEX 2 MG GUM BUC PRN ×4 (06:32→21:44)
[2017-07-01] MEDS ORDERED: METHADONE 200 MG, METHADONE 20 MG PO SCH (07:00)
[2017-07-01] MEDS ORDERED: METHADONE HCL 10 MG TABLET PO SCH (07:00)
[2017-07-01] MEDS: RANITIDINE HCL 150 MG TABLET (FP) PO SCH ×2 (10:15→21:40)
[2017-07-01] MEDS: PRENATAL VITAMINS W/ FOLIC ACID TABLET (FP) PO SCH (10:15)
[2017-07-01] MEDS: NICOTINE 21 MG/24 HOURS TOPICAL PATCH TD SCH (10:16)
[2017-07-01] MEDS: MAG HYDROX/AL HYDROX/SIMETH 30 ML UNIT-DOSE CUP PO PRN (17:37)
[2017-07-01] MEDS: THIAMINE HCL 100 MG TABLET (FP) PO SCH (21:40)
[2017-07-01] MEDS: hydrOXYzine PAMOATE 50 MG CAPSULE (FP) PO PRN (21:43)
[2017-07-01] MEDS: MIRTAZAPINE 15 MG TABLET (FP) PO SCH (21:43)
[2017-07-02] MEDS: LOPERAMIDE HCL 2 MG CAPSULE PO PRN ×2 (02:43→09:10)
[2017-07-02] MEDS: IBUPROFEN 400 MG TABLET (FP) PO PRN (02:45)
[2017-07-02] MEDS: NITROFURANTOIN MACROCRYSTAL 50 MG CAPSULE (FP) PO SCH ×4 (06:54→18:30)
[2017-07-02] MEDS ORDERED: METHADONE HCL 10 MG TABLET ONE (09:07)
[2017-07-02] MEDS ORDERED: METHADONE HCL 40 MG DISPERSABLE TABLET ONE (09:09)
[2017-07-02] MEDS: NICOTINE 21 MG/24 HOURS TOPICAL PATCH TD SCH (09:10)
[2017-07-02] MEDS: PRENATAL VITAMINS W/ FOLIC ACID TABLET (FP) PO SCH (09:10)
[2017-07-02] MEDS: RANITIDINE HCL 150 MG TABLET (FP) PO SCH ×2 (09:11→21:49)
[2017-07-02] MEDS: METHADONE 200 MG, METHADONE 20 MG PO SCH (09:11)
[2017-07-02] MEDS ORDERED: PT OWN MED DRAWER 7, Y5N ONE (10:37)
[2017-07-02] MEDS: hydrOXYzine PAMOATE 50 MG CAPSULE (FP) PO PRN ×2 (12:07→21:51)
[2017-07-02] MEDS: NICOTINE POLACRILEX 2 MG GUM BUC PRN ×2 (12:07→21:53)
[2017-07-02] MEDS: MIRTAZAPINE 15 MG TABLET (FP) PO SCH (21:49)
[2017-07-02] MEDS: THIAMINE HCL 100 MG TABLET (FP) PO SCH (21:49)
[2017-07-02] MEDS: IBUPROFEN 600 MG TABLET (FP) PO PRN (21:52)
[2017-07-03] MEDS: NITROFURANTOIN MACROCRYSTAL 50 MG CAPSULE (FP) PO SCH ×4 (00:36→18:35)
[2017-07-03] MEDS ORDERED: METHADONE HCL 10 MG TABLET ONE (09:06)
[2017-07-03] MEDS ORDERED: METHADONE HCL 40 MG DISPERSABLE TABLET ONE (09:07)
[2017-07-03] MEDS: PRENATAL VITAMINS W/ FOLIC ACID TABLET (FP) PO SCH (09:08)
[2017-07-03] MEDS: LOPERAMIDE HCL 2 MG CAPSULE PO PRN (09:08)
[2017-07-03] MEDS: IBUPROFEN 600 MG TABLET (FP) PO PRN ×2 (09:08→21:54)
[2017-07-03] MEDS: RANITIDINE HCL 150 MG TABLET (FP) PO SCH ×2 (09:08→21:53)
[2017-07-03] MEDS: METHADONE 200 MG, METHADONE 20 MG PO SCH (09:09)
[2017-07-03] MEDS: NICOTINE 21 MG/24 HOURS TOPICAL PATCH TD SCH (09:11)
[2017-07-03] MEDS: MIRTAZAPINE 15 MG TABLET (FP) PO SCH (21:53)
[2017-07-03] MEDS: hydrOXYzine PAMOATE 50 MG CAPSULE (FP) PO PRN (21:54)
[2017-07-03] MEDS: THIAMINE HCL 100 MG TABLET (FP) PO SCH (21:55)
[2017-07-04] MEDS: NITROFURANTOIN MACROCRYSTAL 50 MG CAPSULE (FP) PO SCH ×4 (00:59→17:38)
[2017-07-04] MEDS: NICOTINE POLACRILEX 2 MG GUM BUC PRN ×3 (06:49→21:56)
[2017-07-04] MEDS: ACETAMINOPHEN 325 MG TABLET (FP) PO PRN (09:01)
[2017-07-04] MEDS ORDERED: METHADONE HCL 10 MG TABLET ONE (09:34)
[2017-07-04] MEDS ORDERED: METHADONE HCL 40 MG DISPERSABLE TABLET ONE (09:35)
[2017-07-04] MEDS: PRENATAL VITAMINS W/ FOLIC ACID TABLET (FP) PO SCH (10:22)
[2017-07-04] MEDS: RANITIDINE HCL 150 MG TABLET (FP) PO SCH ×2 (10:22→21:54)
[2017-07-04] MEDS: NICOTINE 21 MG/24 HOURS TOPICAL PATCH TD SCH (10:23)
[2017-07-04] MEDS: METHADONE 200 MG, METHADONE 20 MG PO SCH (10:23)
[2017-07-04] MEDS: hydrOXYzine PAMOATE 50 MG CAPSULE (FP) PO PRN ×2 (17:38→21:55)
[2017-07-04] MEDS: IBUPROFEN 600 MG TABLET (FP) PO PRN (21:54)
[2017-07-04] MEDS: MIRTAZAPINE 15 MG TABLET (FP) PO SCH (21:54)
[2017-07-04] MEDS: THIAMINE HCL 100 MG TABLET (FP) PO SCH (21:54)
[2017-07-05] MEDS: NITROFURANTOIN MACROCRYSTAL 50 MG CAPSULE (FP) PO SCH ×5 (00:25→23:18)
[2017-07-05] MEDS ORDERED: METHADONE HCL 10 MG TABLET ONE (08:35)
[2017-07-05] MEDS ORDERED: METHADONE HCL 40 MG DISPERSABLE TABLET ONE (08:36)
[2017-07-05] MEDS: METHADONE 200 MG, METHADONE 20 MG PO SCH (10:06)
[2017-07-05] MEDS: NICOTINE 21 MG/24 HOURS TOPICAL PATCH TD SCH (10:07)
[2017-07-05] MEDS: RANITIDINE HCL 150 MG TABLET (FP) PO SCH ×2 (10:08→21:51)
[2017-07-05] MEDS: PRENATAL VITAMINS W/ FOLIC ACID TABLET (FP) PO SCH (10:08)
[2017-07-05] MEDS: NICOTINE POLACRILEX 2 MG GUM BUC PRN ×3 (10:10→21:53)
[2017-07-05] MEDS: hydrOXYzine PAMOATE 50 MG CAPSULE (FP) PO PRN ×3 (12:00→21:52)
[2017-07-05] MEDS: THIAMINE HCL 100 MG TABLET (FP) PO SCH (21:50)
[2017-07-05] MEDS: MIRTAZAPINE 15 MG TABLET (FP) PO SCH (21:50)
[2017-07-05] MEDS: IBUPROFEN 600 MG TABLET (FP) PO PRN (21:52)
[2017-07-06] MEDS: NITROFURANTOIN MACROCRYSTAL 50 MG CAPSULE (FP) PO SCH ×4 (06:57→23:06)
[2017-07-06] MEDS ORDERED: METHADONE HCL 40 MG DISPERSABLE TABLET ONE (08:31)
[2017-07-06] MEDS ORDERED: METHADONE HCL 10 MG TABLET ONE (08:31)
[2017-07-06] MEDS ORDERED: PT OWN MED DRAWER 7, Y5N ONE ×2 (08:33→10:29)
[2017-07-06] MEDS: METHADONE 200 MG, METHADONE 20 MG PO SCH (10:18)
[2017-07-06] MEDS: RANITIDINE HCL 150 MG TABLET (FP) PO SCH ×2 (10:19→22:03)
[2017-07-06] MEDS: PRENATAL VITAMINS W/ FOLIC ACID TABLET (FP) PO SCH (10:20)
[2017-07-06] MEDS: NICOTINE 21 MG/24 HOURS TOPICAL PATCH TD SCH (10:20)
[2017-07-06] MEDS: IBUPROFEN 600 MG TABLET (FP) PO PRN (17:46)
[2017-07-06] MEDS: hydrOXYzine PAMOATE 50 MG CAPSULE (FP) PO PRN ×2 (17:46→22:05)
[2017-07-06] MEDS: THIAMINE HCL 100 MG TABLET (FP) PO SCH (22:03)
[2017-07-06] MEDS: MIRTAZAPINE 15 MG TABLET (FP) PO SCH (22:03)
[2017-07-06] MEDS: NICOTINE POLACRILEX 2 MG GUM BUC PRN (22:05)
[2017-07-07] MEDS: NITROFURANTOIN MACROCRYSTAL 50 MG CAPSULE (FP) PO SCH ×2 (06:24→12:35)
[2017-07-07] MEDS ORDERED: METHADONE HCL 10 MG TABLET ONE (08:45)
[2017-07-07] MEDS ORDERED: METHADONE HCL 40 MG DISPERSABLE TABLET ONE (08:45)
[2017-07-07] MEDS: METHADONE 200 MG, METHADONE 20 MG PO SCH (10:30)
[2017-07-07] MEDS: PRENATAL VITAMINS W/ FOLIC ACID TABLET (FP) PO SCH (10:31)
[2017-07-07] MEDS: RANITIDINE HCL 150 MG TABLET (FP) PO SCH ×2 (10:31→22:11)
[2017-07-07] MEDS: NICOTINE POLACRILEX 2 MG GUM BUC PRN ×4 (10:34→22:13)
[2017-07-07] MEDS: NICOTINE 21 MG/24 HOURS TOPICAL PATCH TD SCH (10:50)
[2017-07-07] MEDS: IBUPROFEN 600 MG TABLET (FP) PO PRN (19:10)
[2017-07-07] MEDS: THIAMINE HCL 100 MG TABLET (FP) PO SCH (22:11)
[2017-07-07] MEDS: MIRTAZAPINE 15 MG TABLET (FP) PO SCH (22:11)
[2017-07-07] MEDS: hydrOXYzine PAMOATE 50 MG CAPSULE (FP) PO PRN (22:13)
[2017-07-08] MEDS ORDERED: METHADONE HCL 10 MG TABLET ONE (09:27)
[2017-07-08] MEDS ORDERED: METHADONE HCL 40 MG DISPERSABLE TABLET ONE (09:28)
[2017-07-08] MEDS: METHADONE 200 MG, METHADONE 20 MG PO SCH (10:28)
[2017-07-08] MEDS: RANITIDINE HCL 150 MG TABLET (FP) PO SCH ×2 (10:28→22:17)
[2017-07-08] MEDS: PRENATAL VITAMINS W/ FOLIC ACID TABLET (FP) PO SCH (10:28)
[2017-07-08] MEDS: NICOTINE 21 MG/24 HOURS TOPICAL PATCH TD SCH (10:29)
[2017-07-08] MEDS: NICOTINE POLACRILEX 2 MG GUM BUC PRN (11:05)
[2017-07-08] MEDS: IBUPROFEN 600 MG TABLET (FP) PO PRN (17:08)
[2017-07-08] MEDS: MIRTAZAPINE 15 MG TABLET (FP) PO SCH (22:17)
[2017-07-08] MEDS: hydrOXYzine PAMOATE 50 MG CAPSULE (FP) PO PRN (22:18)
[2017-07-08] MEDS: ACETAMINOPHEN 325 MG TABLET (FP) PO PRN (22:18)
[2017-07-08] MEDS: THIAMINE HCL 100 MG TABLET (FP) PO SCH (22:18)
[2017-07-08] MEDS ORDERED: WITCH HAZEL 50% (TUCKS) 40 PAD/JAR PAD TP PRN (22:40)
[2017-07-09] MEDS: IBUPROFEN 600 MG TABLET (FP) PO PRN ×4 (02:43→22:06)
[2017-07-09] MEDS ORDERED: METHADONE HCL 10 MG TABLET ONE (09:20)
[2017-07-09] MEDS ORDERED: METHADONE HCL 40 MG DISPERSABLE TABLET ONE (09:21)
[2017-07-09] MEDS: METHADONE 200 MG, METHADONE 20 MG PO SCH (10:52)
[2017-07-09] MEDS: PRENATAL VITAMINS W/ FOLIC ACID TABLET (FP) PO SCH (10:54)
[2017-07-09] MEDS: RANITIDINE HCL 150 MG TABLET (FP) PO SCH ×2 (10:54→22:03)
[2017-07-09] MEDS: NICOTINE 21 MG/24 HOURS TOPICAL PATCH TD SCH (10:54)
[2017-07-09] MEDS: ACETAMINOPHEN 325 MG TABLET (FP) PO PRN (14:16)
--- NOTE | 2017-07-09 14:54 | PN ---
[facility] Progress Note Note: Pt. c/o severe dental pain, the first lower canine is decayed with swollen gum surrounding it Vital Signs - 8 hr 07/09/17 07:49 Temperature 98.1 F Pulse Rate 74 Respiratory 18 Rate Blood Pressure 93/62 Dental Abscess P : Clindamycin 300mg qid Viscous lidocaine
[2017-07-09] MEDS: CLINDAMYCIN HCL 150 MG CAPSULE (FP) PO SCH ×2 (17:09→22:03)
[2017-07-09] MEDS: MIRTAZAPINE 15 MG TABLET (FP) PO SCH (22:03)
[2017-07-09] MEDS: THIAMINE HCL 100 MG TABLET (FP) PO SCH (22:03)
[2017-07-09] MEDS: AMMONIUM LACTATE 12% LOTION 225 GM BOTTLE TP PRN (22:04)
[2017-07-09] MEDS: hydrOXYzine PAMOATE 50 MG CAPSULE (FP) PO PRN (22:05)
[2017-07-09] MEDS: LIDOCAINE VISCOUS 2% ORAL/TOP 20 ML UNIT-DOSE CUP MM PRN (22:07)
[2017-07-10] MEDS: IBUPROFEN 600 MG TABLET (FP) PO PRN ×3 (06:31→21:52)
[2017-07-10] MEDS ORDERED: METHADONE HCL 10 MG TABLET PO SCH (10:45)
[2017-07-10] MEDS ORDERED: METHADONE HCL 10 MG TABLET ONE (10:55)
[2017-07-10] MEDS ORDERED: METHADONE HCL 40 MG DISPERSABLE TABLET ONE (10:55)
[2017-07-10] MEDS: PRENATAL VITAMINS W/ FOLIC ACID TABLET (FP) PO SCH (11:01)
[2017-07-10] MEDS: CLINDAMYCIN HCL 150 MG CAPSULE (FP) PO SCH ×4 (11:01→21:52)
[2017-07-10] MEDS: RANITIDINE HCL 150 MG TABLET (FP) PO SCH ×2 (11:02→21:52)
[2017-07-10] MEDS: NICOTINE 21 MG/24 HOURS TOPICAL PATCH TD SCH (11:02)
[2017-07-10] MEDS: METHADONE 200 MG, METHADONE 20 MG PO SCH (11:03)
[2017-07-10] MEDS: ACETAMINOPHEN 325 MG TABLET (FP) PO PRN (20:10)
[2017-07-10] MEDS: MIRTAZAPINE 15 MG TABLET (FP) PO SCH (21:52)
[2017-07-10] MEDS: hydrOXYzine PAMOATE 50 MG CAPSULE (FP) PO PRN (21:52)
[2017-07-10] MEDS: THIAMINE HCL 100 MG TABLET (FP) PO SCH (21:53)
[2017-07-11] MEDS: IBUPROFEN 600 MG TABLET (FP) PO PRN ×3 (06:42→21:48)
[2017-07-11] MEDS ORDERED: METHADONE HCL 10 MG TABLET ONE (09:07)
[2017-07-11] MEDS ORDERED: METHADONE HCL 40 MG DISPERSABLE TABLET ONE (09:08)
[2017-07-11] MEDS: METHADONE 200 MG, METHADONE 20 MG PO SCH (10:53)
[2017-07-11] MEDS: CLINDAMYCIN HCL 150 MG CAPSULE (FP) PO SCH ×4 (10:55→21:48)
[2017-07-11] MEDS: RANITIDINE HCL 150 MG TABLET (FP) PO SCH ×2 (10:55→21:48)
[2017-07-11] MEDS: PRENATAL VITAMINS W/ FOLIC ACID TABLET (FP) PO SCH (10:55)
[2017-07-11] MEDS: NICOTINE 21 MG/24 HOURS TOPICAL PATCH TD SCH (10:56)
[2017-07-11] MEDS: NICOTINE POLACRILEX 2 MG GUM BUC PRN ×2 (10:57→13:37)
[2017-07-11] MEDS: MAG HYDROX/AL HYDROX/SIMETH 30 ML UNIT-DOSE CUP PO PRN (15:50)
[2017-07-11] MEDS: ACETAMINOPHEN 325 MG TABLET (FP) PO PRN (17:50)
[2017-07-11] MEDS: THIAMINE HCL 100 MG TABLET (FP) PO SCH (21:47)
[2017-07-11] MEDS: hydrOXYzine PAMOATE 50 MG CAPSULE (FP) PO PRN (21:49)
[2017-07-11] MEDS: MIRTAZAPINE 15 MG TABLET (FP) PO SCH (21:50)
[2017-07-12] MEDS: IBUPROFEN 600 MG TABLET (FP) PO PRN ×2 (08:27→17:45)
[2017-07-12] MEDS ORDERED: METHADONE HCL 10 MG TABLET ONE (09:15)
[2017-07-12] MEDS ORDERED: METHADONE HCL 40 MG DISPERSABLE TABLET ONE (09:16)
[2017-07-12] MEDS: METHADONE 200 MG, METHADONE 20 MG PO SCH (10:23)
[2017-07-12] MEDS: RANITIDINE HCL 150 MG TABLET (FP) PO SCH ×2 (10:25→21:41)
[2017-07-12] MEDS: CLINDAMYCIN HCL 150 MG CAPSULE (FP) PO SCH ×4 (10:25→21:41)
[2017-07-12] MEDS: NICOTINE 21 MG/24 HOURS TOPICAL PATCH TD SCH (10:25)
[2017-07-12] MEDS: PRENATAL VITAMINS W/ FOLIC ACID TABLET (FP) PO SCH (10:25)
[2017-07-12] MEDS: AMMONIUM LACTATE 12% LOTION 225 GM BOTTLE TP PRN (10:26)
[2017-07-12] MEDS: NICOTINE POLACRILEX 2 MG GUM BUC PRN ×3 (14:08→21:41)
[2017-07-12] MEDS: LIDOCAINE VISCOUS 2% ORAL/TOP 20 ML UNIT-DOSE CUP MM PRN (17:45)
[2017-07-12] MEDS: hydrOXYzine PAMOATE 50 MG CAPSULE (FP) PO PRN (21:41)
[2017-07-12] MEDS: MIRTAZAPINE 15 MG TABLET (FP) PO SCH (21:41)
[2017-07-12] MEDS: THIAMINE HCL 100 MG TABLET (FP) PO SCH (21:41)
[2017-07-13] MEDS ORDERED: METHADONE HCL 10 MG TABLET ONE (09:01)
[2017-07-13] MEDS ORDERED: METHADONE HCL 40 MG DISPERSABLE TABLET ONE (09:01)
[2017-07-13] MEDS: NICOTINE 21 MG/24 HOURS TOPICAL PATCH TD SCH (10:44)
[2017-07-13] MEDS: METHADONE 200 MG, METHADONE 20 MG PO SCH (10:44)
[2017-07-13] MEDS: PRENATAL VITAMINS W/ FOLIC ACID TABLET (FP) PO SCH (10:44)
[2017-07-13] MEDS: CLINDAMYCIN HCL 150 MG CAPSULE (FP) PO SCH ×4 (10:44→21:47)
[2017-07-13] MEDS: RANITIDINE HCL 150 MG TABLET (FP) PO SCH ×2 (10:44→21:47)
[2017-07-13] MEDS: IBUPROFEN 600 MG TABLET (FP) PO PRN ×2 (13:36→21:49)
[2017-07-13] MEDS: NICOTINE POLACRILEX 2 MG GUM BUC PRN ×2 (13:38→21:49)
[2017-07-13] MEDS: MIRTAZAPINE 15 MG TABLET (FP) PO SCH (21:47)
[2017-07-13] MEDS: THIAMINE HCL 100 MG TABLET (FP) PO SCH (21:47)
[2017-07-13] MEDS: hydrOXYzine PAMOATE 50 MG CAPSULE (FP) PO PRN (21:49)
[2017-07-14 07:17] VITALS: BP 94/63; PULSE 70; TEMP 98.1
[2017-07-14] MEDS ORDERED: METHADONE HCL 10 MG TABLET ONE (08:49)
[2017-07-14] MEDS ORDERED: METHADONE HCL 40 MG DISPERSABLE TABLET ONE (08:50)
--- NOTE | 2017-07-14 09:42 | PN ---
Psychiatric Progress Note Vital Signs: Vital Signs Period Temp Pulse Resp BP Sys/Wright Pulse Ox Last 24 Hr 98.1 F 70 18-18 94/63 Date of Session: 07/14/17 Chief Complaint:: Discharge visit HPI: Patient addressed Alcohol,Opioid and Anxiolytic dependence comorbid with PTSD,Bipolar II disorder. ROS: Significant for GERD,BA,Low back pain. Current Medications: Active Medications Generic Name Dose Route Start Last Admin Trade Name Freq PRN Reason Stop Dose Admin Acetaminophen 650 mg 06/30/17 13:09 07/11/17 17:50 Tylenol - PO 650 mg Q4H PRN Administration FEVER OR PAIN Al Hydroxide/Mg Hydroxide 30 ml 06/30/17 13:09 07/11/17 15:50 Mylanta Oral Suspension - PO 30 ml Q6H PRN Administration DYSPEPSIA Clindamycin HCl 300 mg 07/09/17 18:00 07/13/17 21:47 Cleocin - PO 300 mg QID JOSE Administration Diphenhydramine HCl 50 mg 06/30/17 13:09 06/30/17 21:56 Benadryl - PO 50 mg HSMR1 PRN Administration FOR ITCHING Eucalyptus/Menthol/Phenol/Sorbitol 1 each 06/30/17 13:09 Cepastat Lozenge - MM Q4H PRN SORE THROAT Guaifenesin 10 ml 06/30/17 13:09 Robitussin Dm - PO Q6H PRN COUGH Hydroxyzine Pamoate 50 mg 07/01/17 11:23 07/13/17 21:49 Vistaril - PO 50 mg Q4H PRN Administration ANXIETY Ibuprofen 600 mg 07/09/17 14:55 07/13/17 21:49 Motrin - PO 600 mg Q4H PRN Administration PAIN Lactic Acid 1 applic 07/08/17 15:09 07/12/17 10:26 Lac-Hydrin 12 TP 1 applic BID PRN Administration DRY SKIN Lidocaine HCl 20 ml 07/09/17 14:50 07/12/17 17:45 Xylocaine 2% Viscous Oral - MM 20 ml Q4HPO PRN Administration ORAL PAIN/MOUTH SORES Loperamide HCl 4 mg 06/30/17 13:09 07/03/17 09:08 Imodium - PO 4 mg Q6H PRN Administration DIARRHEA Magnesium Hydroxide 30 ml 06/30/17 13:09 Milk Of Magnesia - PO DAILY PRN CONSTIPATION Methadone HCl 200 mg/ 220 mg 07/10/17 10:55 07/13/17 10:44 Methadone HCl 20 mg PO 07/17/17 10:54 220 mg DAILY JOSE Administration Mirtazapine 15 mg 07/01/17 22:00 07/13/17 21:47 Remeron - PO 15 mg HS JOSE Administration Nicotine 21 mg 07/01/17 10:00 07/13/17 10:44 Nicoderm Patch - TD 21 mg DAILY JOSE Administration Nicotine Polacrilex 2 mg 06/30/17 13:09 07/13/17 21:49 Nicorette Gum - BUC 2 mg Q2H PRN Administration NICOTINE REPLACEMENT RX Multivit/Folic Acid/Iron 1 tab 07/01/17 10:00 07/13/17 10:44 Vitamins (Sjr) - PO 1 tab DAILY JOSE Administration Pseudoephedrine/Triprolidine 1 combo 06/30/17 13:09 Actifed - PO TID PRN NASAL CONGESTION Ranitidine HCl 150 mg 06/30/17 22:00 07/13/17 21:47 Zantac - PO 150 mg BID JOSE Administration Thiamine HCl 100 mg 06/30/17 22:00 07/13/17 21:47 Vitamin B1 - PO 100 mg HS JOSE Administration Witch Elis/Glycerin 1 pad 07/08/17 22:40 Tucks Pads - TP PRN PRN PAIN Current Side Effect: No Lab tests ordered: No Lab tests reviewed: Yes Provider note:: Patient completed this program today.She ahs met her treatment goals and will continue to address her issues on outpatient basis at [facility].Patient reports finding Remeron 15 mg po hs helps to cope with insomnia,depression.script for 30 days provided. Supportive therapy provided focusing on relapse prevention.Support system,coping skills utlization has been discussed with the patient to maintain recovery precess. Patient is stable for discharge today. Total face to face time:: 30 Mental Status Exam - Mental Status Exam Alert and Oriented to: Time, Place, Person Cognitive Function: Grossly Intact Patient Appearance: Well Groomed Mood: Hopeful, Euthymic Affect: Appropriate, Mood Congruent Patient Behavior: Cooperative Speech Pattern: Clear Voice Loudness: Normal Thought Process: Goal Oriented Thought Disorder: Not Present Hallucinations: Denies Suicidal Ideation: Denies Homicidal Ideation: Denies Insight/Judgement: Fair Sleep: Fair Appetite: Good Muscle strength/Tone: Normal Gait/Station: Normal Psychiatric Treatment Plan - Problem List (1) Drug-induced mood disorder Current Visit: Yes (2) UTI (urinary tract infection) Current Visit: Yes (3) Asthma Current Visit: Yes Qualifiers: (4) Chronic back pain Current Visit: Yes Qualifiers: (5) GERD (gastroesophageal reflux disease) Current Visit: Yes Qualifiers: (6) Nicotine dependence Current Visit: Yes Qualifiers: (7) Bipolar II disorder Current Visit: Yes (8) Alcohol dependence Current Visit: Yes (9) Opioid dependence on agonist therapy Current Visit: Yes (10) PTSD (post-traumatic stress disorder) Current Visit: Yes (11) Sedative hypnotic or anxiolytic dependence Current Visit: Yes
[2017-07-14] MEDS: CLINDAMYCIN HCL 150 MG CAPSULE (FP) PO SCH (10:43)
[2017-07-14] MEDS: NICOTINE 21 MG/24 HOURS TOPICAL PATCH TD SCH (10:44)
[2017-07-14] MEDS: RANITIDINE HCL 150 MG TABLET (FP) PO SCH (10:44)
[2017-07-14] MEDS: PRENATAL VITAMINS W/ FOLIC ACID TABLET (FP) PO SCH (10:44)
[2017-07-14] MEDS: METHADONE 200 MG, METHADONE 20 MG PO SCH (10:44)
== END 2017-07-14 11:05 | disposition home or self-care (01) | DRG 772 ==
LOC: YASAS 12:31 → Y3E 12:32
PROVIDERS: ADMIT Psychiatry & Neurology Psychiatry; ATTEND Psychiatry & Neurology Psychiatry
PROC: HZ42ZZZ Group Counseling for Substance Abuse Treatment, Cognitive-Behavioral (ICD-10-PCS; principal; 2017-06-30)
DX: F10.20 Alcohol dependence, uncomplicated (principal); F11.20 Opioid dependence, uncomplicated; F13.20 Sedative, hypnotic or anxiolytic dependence, uncomplicated; F17.210 Nicotine dependence, cigarettes, uncomplicated; F19.24 Other psychoactive substance dependence with psychoactive substance-induced mood disorder; F31.81 Bipolar II disorder; F43.10 Post-traumatic stress disorder, unspecified; N39.0 Urinary tract infection, site not specified; J45.909 Unspecified asthma, uncomplicated; M54.5 Low back pain; G89.29 Other chronic pain; K21.9 Gastro-esophageal reflux disease without esophagitis; K04.7 Periapical abscess without sinus; Z88.0 Allergy status to penicillin; Z91.018 Allergy to other foods